=== PATIENT | female | born 1990 | race Caucasian/White ===

== ENCOUNTER → 2020-06-23 10:25 | Outpatient (CLI) | payer SELFPAY ==
[2020-06-23 09:20] VITALS: BMI 19.8
[2020-06-23 10:48] LABS: Absolute Lymphocyte Count 1.62 X10^3/uL (0.83-4.51); Absolute Neutrophil Count 10.5 X10^3/uL (2.0-7.7); Basophil# 0.04 X10^3/uL; Basophil% 0.3 % (0-1); Eosinophil# 0.12 X10^3/uL; Eosinophils% 0.9 % (0-5); Hemoglobin 13.5 g/dL (12.0-15.0); Lymphocyte # 1.62 X10^3/ul (0.83-4.51); Lymphocyte % 12.5 % (19-41); Mean Corp Hgb Conc 33.8 g/dL (32-36); Mean Corpuscular Hgb 29.9 pg (27.0-32.0); Mean Corpuscular Volume 88.7 fL (81-99); Mean Platelet Vol. 9.1 fl (6.2-12.0); Monocyte# 0.65 X10^3/uL; NRBC Flagged by Analyzer 0 % (0-5); Neutrophil % 80.9 % (47-70); Platelet Count 248 K/mm3 (150-450); RBC Distribution Width CV 12.4 % (11.6-14.6); RBC Distribution Width SD 40.2 fl (35.1-43.9); Red Blood Count 4.51 M/mm3 (4.2-5.4)
[2020-06-23 11:41] LABS: HIV - WCH Non-Reactive (Nonreactive); Hepatitis B Surface Antigen Non-Reactive (Nonreactive); Hepatitis C Antibody Non-Reactive (Nonreactive); Rubella IgG Reactive (Nonreactive); Syphilis Antibodies Non-reactive
[2020-06-23 14:26] LABS: Amphetamine Urine VISTA NEGATIVE (<1000 ng/mL); Barbiturate Urine VISTA NEGATIVE (< 200 ng/mL); Benzodiazepine Urine VISTA NEGATIVE (< 200 ng/mL); Cocaine Urine VISTA NEGATIVE (< 300 ng/mL); Ecstacy Urine VISTA NEGATIVE (< 500 ng/mL); Methadone Urine VISTA NEGATIVE (< 300 ng/mL); PCP Urine VISTA NEGATIVE (< 25 ng/mL); THC Urine VISTA NEGATIVE (< 50 ng/mL); Vista UDS pH Range 6
[2020-06-25 03:07] LABS: Chlamydia By Nucleic Acid AMP Negative (Negative)
[2020-06-25 08:42] LABS: Gonococcus By Nucleic Acid AMP Negative (Negative)
[2020-06-25 20:19] LABS: HPV APTIMA, High Risk Negative (Negative)
== END ==
PROVIDERS: Referring Provider Obstetrics & Gynecology; Visit Provider Obstetrics & Gynecology
DX: Z34.00 Encounter for supervision of normal first pregnancy, unspecified trimester (principal); Z12.4 Encounter for screening for malignant neoplasm of cervix
CPT/HCPCS: 36415; 80307; 85025; 86703; 86762; 86780; 86803; 86850; 86900; 86901; 87086; 87340; 87491; 87591; 87624; 88175; G0145

== ENCOUNTER → 2020-09-02 13:51 | Outpatient (CLI) | payer SELFPAY ==
[2020-07-22 10:55] VITALS: BMI 19.8
[2020-08-18 14:02] VITALS: BMI 21.4
--- NOTE | 2020-09-02 13:57 | US_ITS ---
STUDY: SECOND AND THIRD TRIMESTER OBSTETRICAL ULTRASOUND REASON FOR EXAM: Female, 30 years old ANATOMY LMP: 04/13/2020. TECHNIQUE: Transabdominal and Transvaginal TECHNICAL QUALITY: Limited. Limited due to the positioning. PRIOR ULTRASOUND: None. FINDINGS: There is a single intrauterine fetus. The fetus is in a cephalic presentation. There is demonstrated cardiac activity with a heart rate of 150 bpm. There is a normal amniotic fluid volume. The largest amniotic fluid pocket measures 7.2 cm. The amniotic fluid index (NICOLE) is within normal limits. The placenta is posterior in location and is not low lying. There are Grade 0 placental changes. The cervix measures 3.2 cm in length. The adnexal regions are not visualized. BIOMETRY: BPD: 4.5 cm: 19 weeks, 4 days HC: 17.83 cm: 20 weeks, 2 days AC: 15.3 cm: 20 weeks, 3 days FL: 3.12 cm: 9 weeks, 4 days CI: 70.7% FL/BPD: 69.3% FL/HC: FL/AC: 20.4% HC/AC: 1.17 age by current US: 20 weeks, 0 days. KHALIDA by current US: 01/20/2021. Estimated weight: 331 grams, +/- 50 grams, 33.7 %. Age by LMP: 20 weeks, 2 days. KHALIDA by LMP: 01/18/2021. ANATOMY: Gender: Female Cranium: Normal lateral ventricles. Normal choroid plexus. Normal cerebellum. Normal cisterna magna. Normal face, nose and lips. Chest: Normal 4-chamber heart. Abdomen/Pelvis: Normal diaphragm. Normal stomach. Normal abdominal wall. Normal cord insertion. Normal 3 vessel cord. Normal kidneys. Normal bladder. Spine: Limited visualization of the cervical spine. Follow-up is recommended. Normal thoracic spine. Normal lumbar spine. Normal sacrum. Extremities: Normal bilateral upper extremities. Normal bilateral lower extremities. US/OB Anatomy Scan IMPRESSION: Single live intrauterine gestation with mean gestational age of 20 weeks. Electronically Signed: Christian Madrigal MD at 12:57 EDT , Service support ,
== END ==
PROVIDERS: Referring Provider Nurse Practitioner Women's Health; Visit Provider Nurse Practitioner Women's Health
DX: Z34.01 Encounter for supervision of normal first pregnancy, first trimester (principal)
CPT/HCPCS: 76805; 76817

== ENCOUNTER → 2020-10-19 13:02 | Outpatient (CLI) | payer SELFPAY ==
[2020-10-19 13:29] LABS: Absolute Neutrophil Count 13.2 X10^3/uL (2.0-7.7); Basophil# 0.03 X10^3/uL; Basophil% 0.2 % (0-1); Eosinophil# 0.13 X10^3/uL; Eosinophils% 0.8 % (0-5); Hematocrit 34.7 % (37-47); Hemoglobin 11.8 g/dL (12.0-15.0); Lymphocyte % 8.4 % (19-41); Mean Corpuscular Hgb 31.1 pg (27.0-32.0); Mean Corpuscular Volume 91.3 fL (81-99); Mean Platelet Vol. 8.8 fl (6.2-12.0); Monocyte# 0.69 X10^3/uL; Monocyte% 4.4 % (0-10); NRBC Flagged by Analyzer 0 % (0-5); Neutrophil # 13.16 X10^3/uL (2.7-7.7); Neutrophil % 84.8 % (47-70); Platelet Count 250 K/mm3 (150-450); RBC Distribution Width CV 12.2 % (11.6-14.6); RBC Distribution Width SD 40.4 fl (35.1-43.9); White Blood Count 15.5 K/mm3 (4.4-11.0)
[2020-10-19 14:11] LABS: Glucose Challenge Gest 1H 50g 108 mg/dL (70-140)
== END ==
PROVIDERS: Referring Provider Obstetrics & Gynecology; Visit Provider Obstetrics & Gynecology
DX: Z13.1 Encounter for screening for diabetes mellitus (principal); Z34.01 Encounter for supervision of normal first pregnancy, first trimester
CPT/HCPCS: 36415; 82950; 85025; 86850; 86900; 86901

== ENCOUNTER → 2020-12-22 | Outpatient (CLI) | payer SELFPAY | END | disposition home or self-care (01) | PROVIDERS: Visit Provider Obstetrics & Gynecology | DX: Z34.01 Encounter for supervision of normal first pregnancy, first trimester (principal) | CPT/HCPCS: 87081 ==

== ENCOUNTER → 2021-01-20 | Outpatient (CLI) | payer SELFPAY | END | disposition home or self-care (01) | LOC: LABSPEC 16:41 | PROVIDERS: Visit Provider Obstetrics & Gynecology | DX: Z34.93 Encounter for supervision of normal pregnancy, unspecified, third trimester (principal) | CPT/HCPCS: 87635; U0005; U0003 ==

== ENCOUNTER 2021-01-22 07:10 | Inpatient (IN) | payer OTHER, SELFPAY ==
[2020-06-23 09:20] VITALS: BMI 19.8
[2021-01-22] VITALS (70 sets, daily range): BP systolic 100–136; BP diastolic 55–87; PULSE 76–117; RESP 18; TEMP 36.2–37.4; O2SAT 93–100; BMI 28.6
[2021-01-22] MEDS: Lactated Ringers 1,000 ML 200 ML IV (07:40)
[2021-01-22 08:08] LABS: Absolute Lymphocyte Count 1.81 X10^3/uL (0.83-4.51); Absolute Neutrophil Count 16.2 X10^3/uL (2.0-7.7); Basophil# 0.06 X10^3/uL; Basophil% 0.3 % (0-1); Eosinophil# 0.09 X10^3/uL; Eosinophils% 0.5 % (0-5); Hemoglobin 11.2 g/dL (12.0-15.0); Lymphocyte # 1.81 X10^3/ul (0.83-4.51); Lymphocyte % 9.4 % (19-41); Mean Corpuscular Hgb 26.4 pg (27.0-32.0); Mean Corpuscular Volume 82.4 fL (81-99); Mean Platelet Vol. 9.4 fl (6.2-12.0); Monocyte# 0.85 X10^3/uL; Monocyte% 4.4 % (0-10); NRBC Flagged by Analyzer 0 % (0-5); Neutrophil # 16.17 X10^3/uL (2.7-7.7); Neutrophil % 84.5 % (47-70); Platelet Count 287 K/mm3 (150-450); RBC Distribution Width CV 13.9 % (11.6-14.6); RBC Distribution Width SD 41.2 fl (35.1-43.9); Red Blood Count 4.25 M/mm3 (4.2-5.4); White Blood Count 19.2 K/mm3 (4.4-11.0)
[2021-01-22] MEDS: Lactated Ringers 500 ML 999 ML IV ×2 (08:38→09:59)
--- NOTE | 2021-01-22 08:44 | HP.PCM.OB_ITS ---
HPI - General General Date of Admission: 01/22/21 HPI Narrative MADISON HERNANDEZ, is a 30 F @ 40 weeks 4 days who presents to l&D at 6 cm dilated. She states that she has been leaking some yellow fluid x 2 days but does not believe that her membranes are ruptured. She was scheduled for an IOL for Sunday. Maternal Data Information KHALIDA Calculator Estimated Delivery Date Method Current WG Current Estimate 01/18/21 LMP (Certain) 40w 4d PFSH PFSH Allergy/AdvReac Type Severity Reaction Status Date / Time No Known Allergies Allergy Verified 01/22/21 07:29 Surgical History History of wisdom tooth extraction, class IV edentulism Social History adopted: No household members: spouse housing: house current occupational status: employed pets and animals: No sexually active: Yes Smoking Status: Never smoker second hand exposure: No alcohol intake: current alcohol intake frequency: holidays/special occasions only substance use type: does not use caffeine: Yes seatbelt use: always do you feel safe at home: Yes additional social history: - Sincere History 1 Elective abortions Hx Para Spontaneous abortions Hx # Term Pregnancies Ectopic pregnancies Hx # Pregnancies Multiple births # of living children Visit Details Expected Delivery Route/Plan Labor Preferences- CB/BF classes: No labor support person: Sincere labor intervention preferences: [] pain management options preferred: epidural cut cord/dad catch: no : yes PP control planned: discussed; condoms discussed possible routes of delivery and associated risks: [] special requests: [] Plans covid status: counseled regarding risk of covid in vs vaccination and declined vaccination flu vaccine: declines tdap vaccine: declines rhogam: declines LARC form signed: yes movement and labor precautions reviewed. Problem list reviewed and updated with the most current plan of care details and appropriate orders placed. Relevant counseling for the gestational age provided. Continue routine care and follow up unless otherwise noted in visit notes/problem list details OB Flowsheet Initial Weight: Not Recorded Date -?-?-?--?-?-?-?-?-?-?-?-?- EGA Weight BP Urine Prot -?-?-?-?-?-?-?-?-?-?-?-?- Glucose FHR FuHt Pres Dilation -?-?-?-?-?-?-?-?-?-?-?-?- Effaced St Visit Note 06/23/20 -?-?-?-?-?-?-?-?-?-?-?-?- 10w 1d 117 lb 4 oz 110/82 -?-?-?-?-?-?-?-?-?-?-?-?- 168 -?-?-?-?-?-?-?-?-?-?-?-?- GP - CRL 28mm co nsistent with LMP. 07/22/20 -?-?-?-?-?-?-?-?-?-?-?-?- 14w 2d 121 lb 8 oz 104/60 Nega tive -?-?-?-?-?-?-?-?-?-?-?-?- Negative 160 -?-?-?-?-?-?-?-?-?-?-?-?- MH-NO VB, LOF. Anatomy US ordered. Nausea improving. Reviewed PNL and need for rhogam. 08/18/20 -?-?-?-?-?-?-?-?-?-?-?-?- 18w 1d 127 lb 110/70 Negative -?-?-?-?-?-?-?-?-?-?-?-?- Negative 145 -?-?-?-?-?-?-?-?-?-?-?-?- GP - no cramping or bleeding. +FM. having surgery 08/30 so needs to reschedule anatomy. 09/17/20 -?-?-?-?-?-?-?-?-?-?-?-?- 22w 3d 137 lb 2 oz 118/70 -?-?-?-?-?-?-?-?-?-?-?-?- 120 22 -?-?-?-?-?-?-?-?-?-?-?-?- GP - no LOF, VB, dFM, ctx. GCT next visit. Anatomy scan reviewed. Having a girl! 10/19/20 -?-?-?-?-?-?-?-?-?-?-?-?- 27w 0d 147 lb 120/82 Trace -?-?-?-?-?-?-?-?-?-?-?-?- Negative 145 27 -?-?-?-?-?-?-?-?-?-?-?-?- MH-No Vb, LOF. Good FM. 28 wk labs and larc done. Declines Tdap and rhogam:states sent proof of 's negative blood type to GP 11/10/20 -?-?-?-?-?-?-?-?-?-?-?-?- 30w 1d 152 lb 8 oz 118/78 Nega tive -?-?-?-?-?-?-?-?-?-?-?-?- Negative 155 30 -?-?-?-?-?-?-?-?-?-?-?-?- GP - no LOF, VB, DFM, ctx. Denies complaints. Discussed medication for occasional heartburn - declines at this time 11/24/20 -?-?-?-?-?-?-?-?-?-?-?-?- 32w 1d 153 lb 8 oz 120/80 Nega tive -?-?-?-?-?-?-?-?-?-?-?-?- Negative 140 32 -?-?-?-?-?-?-?-?-?-?-?-?- GP - no LOF, VB, DFM, ctx. Discussed management of heartburn 12/08/20 -?-?-?-?-?-?-?-?-?-?-?-?- 34w 1d 159 lb 4 oz 118/68 Nega tive -?-?-?-?-?-?-?-?-?-?-?-?- Negative 156 34 -?-?-?-?-?-?-?-?-?-?-?-?- MH-No Vb, LOF. G ood FM. Denies concerns 12/22/20 -?-?-?-?-?-?-?-?-?-?-?-?- 36w 1d 163 lb 4 oz 120/80 1+ -?-?-?-?-?-?-?-?-?-?-?-?- 250 g/dL 165 36 -?-?-?-?-?-?-?-?-?-?-?-?- JV- no lof, vagi nal bleeding, or dec fm. gbs collected today. pt wants us to know that her is also RH neg. 12/29/20 -?-?-?-?-?-?-?-?-?-?-?-?- 37w 1d 165 lb 120/64 Negative -?-?-?-?-?-?-?-?-?-?-?-?- Negative 145 37 -?-?-?-?-?-?-?-?-?-?-?-?- JV- no lof, vagi nal bleeding. some slowing of movement. active now .GBS neg 01/06/21 -?-?-?-?-?-?-?-?-?-?-?-?- 38w 2d 165 lb 2 oz 110/80 Nega tive -?-?-?-?-?-?-?-?-?-?-?-?- Negative 137 36 Cephalic -?-?-?-?-?-?-?-?-?-?-?-?- JV- patient decl juan exam today. no lof, vaginal bleeding, or dec fm. She is not getting a lot of sleep. declines vistaril. 01/14/21 -?-?-?-?-?-?-?-?-?-?-?-?- 39w 3d 168 lb 132/80 Negative -?-?-?-?-?-?-?-?-?-?-?-?- Negative 135 37 Cephalic 2 -?-?-?-?-?-?-?-?-?-?-?-?- 70 -1 SM- no vb lof good fm no regular ctx 01/20/21 -?-?-?-?-?-?-?-?-?-?-?-?- 40w 2d 167 lb 104/72 -?-?-?-?-?-?-?-?-?-?-?-?- 130 39 Cephalic 2 -?-?-?-?-?-?-?-?-?-?-?-?- 70 -1 SM- no vb lof good fm no reulgar ctx 01/22/21 -?-?-?-?-?-?-?-?-?-?-?-?- 40w 4d 131/87 116/84 -?-?-?-?-?-?-?-?-?-?-?-?- -?-?-?--?-?-?-?-?-?-?-?-?- ROS Constitutional Constitutional: Denies change in weight, fatigue, fever(s), headache(s), poor appetite or weakness Eyes Eyes: Denies blurry vision, change in vision, seeing flashes or spots in vision ENT HEENT: Denies dizziness, headache(s), loss taste/smell or sore throat Cardiovascular Cardiovascular: Denies chest pain, dizziness, dyspnea, irregular heart rhythm, leg edema, palpitations, rapid heart rate or vomiting Respiratory/Chest Respiratory/Chest: Denies chest tightness, cough, dyspnea or breast pain Gastrointestinal Gastrointestinal: Denies abdominal pain, anorexia, constipation, cramping, diarrhea, hemorrhoids, vomiting or weight changes Genitourinary Genitourinary: Denies dysuria, flank pain, genital lesions, genital pain, urinary frequency or urinary urgency Musculoskeletal Musculoskeletal: Denies back pain, difficulty walking, joint pain, limited range of motion, muscle cramps or numbness Integumentary Integumentary: Denies lesions or unusual bruising Neurologic Neurologic: Denies abnormal movements, abnormal speech, dizziness, numbness, seizure-like activity or syncope Psychiatric Psychiatric: Denies anxiety, behavioral changes, change in appetite, change in libido, cognitive impairment, confusion, depression, difficulty concentrating, hallucinations or suicidal thoughts Endocrine Endocrinology: Denies excessive sweating, polydipsia or polyuria Hematologic/Lymphatic Hematologic/Lymphatic: Denies easy bleeding, easy bruising or lymphadenopathy Allergic/Immunologic Allergic/Immunologic: Denies itchy eyes, lip swelling, seasonal rhinorrhea, rhinitis, throat swelling, tongue swelling, eczemia, wheezing or asthma Vital Signs Vital Signs Vital Signs: 01/22/21 07:23 01/22/21 07:50 01/22/21 08:02 Temperature 97.7 F L Temperature Source Temporal Pulse Rate 116 H 93 101 H Blood Pressure 131/87 H 116/84 H BP Systolic 131 116 BP Diastolic 87 84 Pulse Ox 100 Physical Exam Const alert, oriented x3, no apparent distress and healthy appearing General Appearance: cooperative; Negative for anxious HEENT normocephalic Face and Sinus: normal facial exam Eyes EOMs intact bilaterally and no scleral icterus General Eye: normal appearance of both eyes Neck full ROM and supple Lymph Lymphatic: no lymphadenopathy noted Chest Chest: abnormal inspection of the chest Resp normal respiratory effort Effort and Inspection: able to speak in complete sentences Cardio regular rate GI soft to palpation and non-tender Inspection: gravid Palpation: soft; Negative for tender external exam normal Amniotic Fluid: ROM+plus Back/Spine no CVA tenderness Extremity normal to inspection, full ROM and no clubbing, cyanosis or edema General Extremity: Negative for calf tenderness or edema Skin Lesions: no lesions Rashes: no rashes Psych mental status grossly normal Labs Labs Labs: Blood Type A NEGATIVE Antibody Screen NEGATIVE Hct 35.0 % (37-47) L Hgb 11.2 g/dL (12.0-15.0) L Obstetrics US Syphilis Total Ab Non-reactive Rubella IgG Antibody Reactive (Nonreactive) Hep Bs Antigen Non-Reactive (Nonreactive) Neisseria gonorrhoeae DNA (AMRITA) Negative (Negative) HIV 1&2 Antibody Non-Reactive (Nonreactive) Glucose 1 Hr 50 gm 108 mg/dL (70-140) Assessment & Plan (1) Encounter for induction of labor: COMMENT: pit fb IOL epi PRN. covid done 01/20- (2) Rh negative status during : QUALIFIERS: Trimester: second trimester Qualified Code(s): O26.892 - Other specified related conditions, second trimester; Z67.91 - Unspecified blood type, Rh negative COMMENT: Rhogam 28 wk, pp and prn - is O negative (documentation sent of blood type). Pt declines rhogam (3) Supervision of normal first : QUALIFIERS: Trimester: first trimester Qualified Code(s): Z34.01 - Encounter for supervision of normal first , first trimester COMMENT: PRR KHALIDA: 01/18/21 Girl! Spouse: Sincere (4) : QUALIFIERS: Weeks of gestation: 40 weeks Qualified Code(s): Z3A.40 - 40 weeks gestation of COMMENT: declined ntd, genetic and carrier; anatomy nl. GBS neg PLAN: Patient presents IAL, plan expectant management for , pitocin/AROM PRN if needed. Pain management: plans epidural. GBS negative Management of any complications: none I have reviewed the [facility] and made any clinically relevant updates.
--- NOTE | 2021-01-22 09:07 | NURSING ---
0907-uncertain if pt ruptured for sure, pt had been wearing a pad for the last few days, but had stated her fluid was yellow in appearance to the pad when she noticed it.
[2021-01-22] MEDS: fentaNYL-bupivacaine (epidural) 100 ML BAG EPIDURAL (09:36)
[2021-01-22] MEDS: Oxytocin 30 units/NS 500 ml 30 UNITS/500 ML IV.SOLN IV (11:41)
[2021-01-22] MEDS: Mag Hydrox/Al Hydrox/Simeth 30 ML UDC PO (13:56)
[2021-01-22] MEDS: Oxytocin 30 units/NS 500 ml 30 UNITS/500 ML IV.SOLN 334 UNITS IV (14:25)
--- NOTE | 2021-01-22 14:43 | EX.PCM.OBRPT ---
Maternal Data Information KHALIDA Calculator Estimated Delivery Date Method Current WG Current Estimate 01/18/21 LMP (Certain) 40w 4d Vaginal Delivery Maternal Presentation Maternal Presentation: Active Labor Operative Information Date of Procedure: 01/22/21 Pre-Operative Diagnosis: 40 weeks 4 days active labor Post-Operative Diagnosis: 40 weeks 4 days active labor Surgery / Procedure Performed: Spontaneous Vaginal Delivery Type of Anesthesia: Epidural Estimated Blood Loss: 300cc Time of Delivery: 14:36 Findings Description of Procedure: Patient began pushing and delivered the head in the DNAISH presentation. The head was delivered atraumatically . The anterior and posterior shoulders delivered without complication followed by the rest of the infant and the was placed on the maternal abdomen. Delayed cord clamping was employed for approximately 60 seconds. Cord was clamped and cut and gentle traction was applied to the cord and the placenta delivered spontaneously immediately following it was noted to be intact with three-vessel cord. The perineum and vagina were inspected and found to have a 2nd degree perineal laceration that was repaired using a 2-0 vicryl suture. EBL was 300cc. Patient and infant tolerated delivery well. Presentation: Vertex Amniotic Membrane Rupture Type: Artificial Amniotic Fluid Description: Clear Placental Delivery Description: Spontaneous Placenta Disposition: [facility] Cord Vessel Description: 3 Vessels Cord Entanglement: None (1 minute): 8 (5 minute): 9 Delayed Cord Clamping: Yes Post Vaginal Delivery Medications Given After Delivery: IV Pitocin Episiotomy Description: None Laceration: 2nd degree Complication Complications: None Baby B Operative Information Mode of Delivery: Vaginal Cord Vessel Description: 3 Vessels Cord Entanglement: None B gender: Female (1 minute): 8 (5 minute): 9 Delayed Cord Clamping: Yes Multi Select Codes Urinary/Genital Urinary/Genital CPT Codes: 07098 Vaginal Delivery [facility]
[2021-01-22] MEDS: 0.9% Saline Lock 10 ML Syringe IV (17:08)
[2021-01-22] MEDS: Senna/Docusate Sodium 1 Tablet PO (17:08)
[2021-01-22] MEDS: Acetaminophen 500 MG Tablet 1000 MG PO (21:22)
[2021-01-23] VITALS (10 sets, daily range): BP systolic 106–118; BP diastolic 58–72; PULSE 82–112; RESP 16–18; TEMP 36.3–36.7; O2SAT 93–98
[2021-01-23] MEDS: Ibuprofen 600 MG Tablet PO ×2 (00:53→12:03)
[2021-01-23] MEDS: Benzocaine/Lanolin/Aloe Vera 1 SPRAY EACH TOPICAL (00:55)
--- NOTE | 2021-01-23 11:15 | PCM.DC ---
Discharge Instructions Diet Discharge Diet: No restrictions Activity Discharge Activity: Return to Normal Activity, May Not Drive (while taking narcotic pain medications.) and May Shower May resume sexual activity in: 4-6 weeks Dressing / Incision Call your doctor if your incision/area has: Continuous Slow Oozing, Sudden Increased Bleeding, Increased Pain/ Swelling, Increased Redness and Foul Smelling Discharge Follow Up Care Please Follow Up With: Mahsa Lebron DO When: Call [phone] to make an appointment with your doctor in 6 weeks. If you had elevated blood pressure or 4th degree laceration, you will need to be seen in 2 weeks. Test Results: Test results from this visit will be discussed in further detail at your follow-up appointment, if applicable. Discharge Plan Admission Admit Date/Time: 01/22/21 07:10 Primary Reason for Your Visit: vaginal delivery Attending Provider: Mahsa Lebron Primary Care Provider: Care Physician,No Primary Discharge Orders/Prescriptions Prescriptions: New ibuprofen 800 mg tablet 800 mg PO Q8H PRN (Reason: pain) 7 Days Qty: 30 RF: 0 docusate sodium [Colace] 100 mg capsule 100 mg PO DAILY 15 Days Qty: 15 RF: 0 Referrals / Follow Up: Care Physician,No Primary [Primary Care Provider] - Disposition Disposition (needs filled in before D/C Order can be placed): Home, Self Care
--- NOTE | 2021-01-23 11:17 | PCM.PN.OB ---
Subjective Subjective Patient doing well without complaints. Tolerating PO. Ambulating and voiding without difficulty. Feeding well. Denies chest pain, shortness of breath, calf pain/swelling, fevers, chills, lightheadedness. Objective Data Objective Data Vital Signs: Vital Signs Temp Pulse Resp BP Pulse Ox 97.4 F L 112 H 16 118/69 97 01/23/21 08:44 01/23/21 08:46 01/23/21 08:44 01/23/21 08:46 01/23/21 08:46 Oxygen Delivery Method Room Air Weight: 167 lb 1.766 oz Body Mass Index (BMI) 28.6 Intake & Output: Intake and Output for Last 24 Hours 01/21/21 01/22/21 01/23/21 23:59 23:59 23:59 Intake Total 3226.84 / 3226.84 Output Total 1450 / 1450 Balance 1776.84 / 1776.84 Lab / Micro Data Result Diagrams: 01/22/21 07:40 ROS Constitutional Constitutional: Denies chills, fatigue, fever(s), poor appetite or weakness Eyes Eyes: Denies blurry vision, change in vision, seeing flashes or spots in vision ENT HEENT: Denies dizziness, headache(s), loss taste/smell or sore throat Cardiovascular Cardiovascular: Denies chest pain, dizziness, dyspnea, irregular heart rhythm, palpitations or rapid heart rate Respiratory/Chest Respiratory/Chest: Denies chest tightness, cough, dyspnea or breast pain Gastrointestinal Gastrointestinal: Denies abdominal pain, constipation or vomiting Genitourinary Genitourinary: Denies dysuria or flank pain Musculoskeletal Musculoskeletal: Denies difficulty walking, joint pain, limited range of motion or numbness Neurologic Neurologic: Denies abnormal movements, abnormal speech, dizziness, numbness, seizure-like activity or syncope Psychiatric Psychiatric: Denies anxiety, behavioral changes, change in appetite, confusion, depression or suicidal thoughts Physical Exam Const alert, oriented x3 and no apparent distress General Appearance: cooperative and comfortable Resp normal respiratory effort Cardio regular rate GI normal to inspection, nondistended, normoactive bowel sounds GI Narrative: uterus is firm below umbilicus Palpation: soft Bimanual Exam - Adnexa, Other: Negative for cul-de-sac fullness Back/Spine no CVA tenderness and thoraco-lumbar ROM normal Extremity normal to inspection, no clubbing, cyanosis or edema, no calf tenderness and no pedal edema Psych mental status grossly normal, thought process normal, cooperative, affect normal, speech normal, activity/motor behavior normal, denies homicidal ideation and denies suicidal ideation Assessment & Plan (1) Encounter for induction of labor: COMMENT: pit fb IOL epi PRN. covid done 01/20- (2) Rh negative status during : QUALIFIERS: Trimester: second trimester Qualified Code(s): O26.892 - Other specified related conditions, second trimester; Z67.91 - Unspecified blood type, Rh negative COMMENT: Rhogam 28 wk, pp and prn - is O negative (documentation sent of blood type). Pt declines rhogam (3) Supervision of normal first : QUALIFIERS: Trimester: first trimester Qualified Code(s): Z34.01 - Encounter for supervision of normal first , first trimester COMMENT: PRR KHALIDA: 01/18/21 Girl! Spouse: Sincere (4) : QUALIFIERS: Weeks of gestation: 40 weeks Qualified Code(s): Z3A.40 - 40 weeks gestation of COMMENT: declined ntd, genetic and carrier; anatomy nl. GBS neg PLAN: s/p PPD # 1 1. routine post delivery care 2. breast feeding- support given 3. rh positive 4. rubella immune 5. dc to home later today if baby cleared by peds and patient feels comfortable with pain later this afternoon.
[2021-01-23] MEDS: Acetaminophen 500 MG Tablet 1000 MG PO (16:16)
== END 2021-01-23 18:15 | disposition home or self-care (01) | DRG 807 ==
PROVIDERS: Admitting Provider Obstetrics & Gynecology; Visit Provider Obstetrics & Gynecology
DX: O70.1 Second degree perineal laceration during delivery (principal); Z37.0 Single live birth; Z3A.40 40 weeks gestation of pregnancy
CPT/HCPCS: 59025; 59050; 85025; 86850; 86900; 86901; 99218; J7120; A4216; G0378

== ENCOUNTER 2021-03-11 10:58 | Outpatient (CLI) | payer OTHER, SELFPAY ==
--- NOTE | 2021-03-11 10:59 | US_ITS ---
STUDY: ULTRASOUND BREAST - LEFT REASON FOR EXAM: Female, 30 years old. Palpable lump left breast. TECHNIQUE: Axial and longitudinal images of the LEFT breast were performed with a high resolution ultrasound transducer. # OF IMAGES: 31 COMPARISON: None. FINDINGS: LEFT Breast: The palpable abnormality corresponds to a 1.7 cm x 2.1 cm x 1.8 cm heterogeneous soft tissue density at the 1 o''clock position of the breast at 2 cm from the nipple. The patient is presently nursing. This may represent a focal area of mastitis. Clinical correlation is recommended. US/Breast Limited Unilateral IMPRESSION: The palpable abnormality corresponds to a 1.7 cm x 2.1 cm x 1.8 some heterogeneous soft tissue density. The patient is nursing. This may represent a focal area of mastitis. ASSESSMENT CATEGORY: BIRADS Category 2: Benign. A letter regarding these results will be sent to the patient by the facility within 30 days. Electronically Signed: Christian Madrigal MD at 13:14 EST , Service support ,
== END 2021-03-11 23:59 | disposition short-term general hospital (02) ==
PROVIDERS: Referring Provider Obstetrics & Gynecology; Visit Provider Obstetrics & Gynecology
DX: N63.20 Unspecified lump in the left breast, unspecified quadrant (principal)
CPT/HCPCS: 76642

== ENCOUNTER → 2023-10-23 | Outpatient (CLI) | payer OTHER, SELFPAY ==
[2023-10-26 07:09] LABS: Chlamydia By Nucleic Acid AMP Negative (Negative); Gonococcus By Nucleic Acid AMP Negative (Negative)
== END | disposition home or self-care (01) ==
LOC: LABSPEC 14:15
PROVIDERS: Referring Provider Obstetrics & Gynecology; Visit Provider Obstetrics & Gynecology
DX: O09.90 Supervision of high risk pregnancy, unspecified, unspecified trimester (principal); Z3A.00 Weeks of gestation of pregnancy not specified
CPT/HCPCS: 87086; 87491; 87591

== ENCOUNTER → 2023-11-20 | Outpatient (CLI) | payer OTHER, SELFPAY ==
--- NOTE | 2023-11-20 12:18 | US_ITS ---
STUDY: ULTRASOUND BREAST - LEFT REASON FOR EXAM: Female, 33 years old. Palpable lump left breast. Patient is . TECHNIQUE: Axial and longitudinal images of the LEFT breast were performed with a high resolution ultrasound transducer. # OF IMAGES: 18 COMPARISON: Comparison is made with prior study dated September 08, 2021. FINDINGS: LEFT Breast: There is a 2.1 cm x 2.3 cm x 1.1 cm well-defined hypoechoic nodule at the 3:00 position of the left breast. This is essentially unchanged. This may represent a fibroadenoma. There is also evidence of a 1.8 cm x 1.8 cm x 0.9 cm well-defined nodule at the 2:00 position of the breast. These may represent fibroadenoma. There is also evidence of a 1 cm x 1.3 cm x 1 cm hypoechoic nodule with posterior acoustical shadowing in the retroareolar region of the breast. Biopsy recommended. US/Breast Limited Unilateral IMPRESSION: Well-defined hypoechoic nodules in the lateral midportion of the left breast as described. Findings suggestive of fibroadenoma. 1 cm x 1.3 cm x 1 cm hypoechoic nodule in the retroareolar region of the left breast with posterior shadowing. Biopsy recommended. ASSESSMENT CATEGORY: BIRADS Category 4: Suspicious - Biopsy Should Be Considered. A letter regarding these results will be sent to the patient by the facility within 30 days. Electronically Signed: Christian Madrigal MD at 14:43 EDT ,
[2023-11-20 14:07] LABS: Absolute Lymphocyte Count 1.41 X10^3/uL (0.83-4.51); Absolute Neutrophil Count 9.6 X10^3/uL (2.0-7.7); Basophil# 0.03 X10^3/uL; Basophil% 0.3 % (0-1); Eosinophils% 1.7 % (0-5); Hematocrit 38.7 % (37-47); Hemoglobin 13.2 g/dL (12.0-15.0); Lymphocyte # 1.41 X10^3/ul (0.83-4.51); Lymphocyte % 12.1 % (19-41); Mean Corp Hgb Conc 34.1 g/dL (32-36); Mean Corpuscular Hgb 30.1 pg (27.0-32.0); Mean Corpuscular Volume 88.2 fL (81-99); Monocyte# 0.45 X10^3/uL; Monocyte% 3.8 % (0-10); NRBC Flagged by Analyzer 0 % (0-5); Neutrophil # 9.56 X10^3/uL (2.7-7.7); Neutrophil % 81.7 % (47-70); Platelet Count 253 K/mm3 (150-450); RBC Distribution Width CV 12.8 % (11.6-14.6); RBC Distribution Width SD 41.5 fl (35.1-43.9); Red Blood Count 4.39 M/mm3 (4.2-5.4); White Blood Count 11.7 K/mm3 (4.4-11.0)
[2023-11-20 15:09] LABS: HIV - WCH Non-Reactive (Nonreactive); Hepatitis B Surface Antigen Non-Reactive (Nonreactive); Hepatitis C Antibody Non-Reactive (Nonreactive); Rubella IgG Reactive (Nonreactive); Syphilis Antibodies Non-reactive
== END | disposition home or self-care (01) ==
PROVIDERS: Referring Provider Obstetrics & Gynecology; Visit Provider Obstetrics & Gynecology
DX: O09.90 Supervision of high risk pregnancy, unspecified, unspecified trimester (principal); Z3A.00 Weeks of gestation of pregnancy not specified; N63.21 Unspecified lump in the left breast, upper outer quadrant
CPT/HCPCS: 36415; 76642; 85025; 86703; 86762; 86780; 86803; 86850; 86900; 86901; 87340

== ENCOUNTER → 2023-11-23 | Outpatient (CLI) | payer OTHER, SELFPAY ==
--- NOTE | 2023-11-23 | BRBX_PTH ---
PATIENT: MADISON HERNANDEZ LOC: [facility] U#:[id number] AGE/SX: 33/F ROOM: RE11/23/[address]: Dr. Lucas Dorsey MD : 1990 BED: DIS: 11/23/2023 SPEC #: [id number] RECD: 11/23/23 15:25 STATUS: MARLENA DEONNA #: [id number] KIMI: 11/23/23 00:[address]: Lucas Dorsey DEPT: SURGICAL PATHOLOGY RECD BY: Vignesh Ventura ENTERED: 11/26/23 07:53 SP TYPE: BREAST BX OTHR DR: No Primary Care Phys Tissues: Left breast, NOS Procedures: Surgery Specimen Level IV HEADER OPERATION: Left breast biopsy PRE-OP DIAGNOSIS: Left breast mass TISSUE SUBMITTED: Left breast tissue Ischemic Time: 1 minute Fixation Time: 30 hours MICROSCOPIC DIAGNOSIS Left breast mass, core biopsy: Mild intraductal hyperplasia without atypia. Negative for malignancy. See comment. 11/27/2023 COMMENT Correlation with clinical, radiologic findings and appropriate follow up are necessary. MICROSCOPIC DESCRIPTION Slides are reviewed. GROSS DESCRIPTION Received in fixative is one container labeled with the patient's name and designated Left breast tissue. The specimen consists of multiple elongated fragments of urrutia-yellow fibroadipose tissue measuring in aggregate 2.0 x 0.2 x 0.1cm. The entire specimen is submitted in one cassette. 11/26/2023 TC:5 CPT:20807
== END | disposition home or self-care (01) ==
LOC: LABSPEC 16:14
PROVIDERS: Referring Provider Surgery; Visit Provider Surgery
DX: N63.20 Unspecified lump in the left breast, unspecified quadrant (principal)
CPT/HCPCS: 88305

== ENCOUNTER → 2023-12-19 | Outpatient (CLI) | payer OTHER, SELFPAY ==
--- NOTE | 2023-12-19 15:26 | US_ITS ---
STUDY: SECOND AND THIRD TRIMESTER OBSTETRICAL ULTRASOUND REASON FOR EXAM: Female, 33 years old anatomy LMP: August 01, 2023. TECHNIQUE: Transabdominal and Transvaginal TECHNICAL QUALITY: Adequate. PRIOR ULTRASOUND: None. FINDINGS: There is a single intrauterine fetus. The fetus is in a cephalic presentation. There is demonstrated cardiac activity with a heart rate of 154 bpm. There is a normal amniotic fluid volume. The largest amniotic fluid pocket measures 4 cm. The amniotic fluid index (NICOLE) is within normal limits. The placenta is anterior in location and is not low lying. There are Grade 0 placental changes. The cervix measures 3.9 cm in length. The adnexal regions are not visualized. BIOMETRY: BPD: 4.79 cm: 20 weeks, 3 days: 70% HC: 17.38 cm.: 19 weeks, 6 days: 38% AC: 14.38 cm: 19 weeks, 5 days: 35% FL: 2.9 cm: 18 weeks, 6 days: 9% CI: 79% FL/BPD: 60% FL/HC: 17% FL/AC: 20% HC/AC: 1.21 age by current US: 19 weeks, 5 days. KHALIDA by current US: May 09, 2024. Estimated weight: 295 grams, +/- 44 grams, 20 %. Age by LMP: 20 weeks, 0 days. KHALIDA by LMP: May 07, 2024. ANATOMY: Gender: Male Cranium: Normal lateral ventricles. Normal choroid plexus. Normal cerebellum. Normal cisterna magna. Normal face, nose and lips. Chest: Normal 4-chamber heart. Abdomen/Pelvis: Normal diaphragm. Normal stomach. Normal abdominal wall. Normal cord insertion. Normal 3 vessel cord. Normal kidneys. Normal bladder. Spine: Normal cervical spine. Normal thoracic spine. Normal lumbar spine. Normal sacrum. Extremities: Normal bilateral upper extremities. Normal bilateral lower extremities. IMPRESSION: Single live intrauterine gestation with mean gestational age of 19 weeks 5 days. Electronically Signed: Christian Madrigal MD at 14:34 EDT , STUDY: FIRST TRIMESTER OBSTETRICAL ULTRASOUND REASON FOR EXAM: Female, 33 years old . Cervical length. TECHNIQUE: Transvaginal TECHNICAL QUALITY: Adequate. PRIOR ULTRASOUND: None. FINDINGS: Cervical length measures 3.9 cm. US/OB Anatomy w/ Transvaginal IMPRESSION: Cervical length measures 3.9 cm. Electronically Signed: Christian Madrigal MD at 14:35 EDT ,
== END | disposition home or self-care (01) ==
PROVIDERS: Referring Provider Nurse Practitioner Women's Health; Visit Provider Nurse Practitioner Women's Health
DX: Z34.90 Encounter for supervision of normal pregnancy, unspecified, unspecified trimester (principal)
CPT/HCPCS: 76805; 76817

== ENCOUNTER → 2024-02-11 | Outpatient (CLI) | payer OTHER, SELFPAY ==
[2024-02-11 16:39] LABS: Glucose Challenge Gest 1H 50g 111 mg/dL (70-140)
[2024-02-11 16:49] LABS: Basophil# 0.05 X10^3/uL; Basophil% 0.4 % (0-1); Eosinophil# 0.18 X10^3/uL; Eosinophils% 1.4 % (0-5); Hematocrit 35.1 % (37-47); Hemoglobin 11.6 g/dL (12.0-15.0); Lymphocyte % 9.9 % (19-41); Mean Corpuscular Hgb 29.2 pg (27.0-32.0); Mean Corpuscular Volume 88.4 fL (81-99); Monocyte% 4.5 % (0-10); NRBC Flagged by Analyzer 0 % (0-5); Neutrophil # 10.97 X10^3/uL (2.7-7.7); Neutrophil % 83.1 % (47-70); Platelet Count 289 K/mm3 (150-450); RBC Distribution Width CV 12.3 % (11.6-14.6); RBC Distribution Width SD 39.7 fl (35.1-43.9); Red Blood Count 3.97 M/mm3 (4.2-5.4); White Blood Count 13.2 K/mm3 (4.4-11.0)
[2024-02-11 17:11] LABS: HIV - WCH Non-Reactive (Nonreactive); Syphilis Antibodies Non-reactive
== END | disposition home or self-care (01) ==
LOC: BWCLAB 15:16
PROVIDERS: Referring Provider Obstetrics & Gynecology; Visit Provider Obstetrics & Gynecology
DX: O09.92 Supervision of high risk pregnancy, unspecified, second trimester (principal); Z3A.00 Weeks of gestation of pregnancy not specified
CPT/HCPCS: 36415; 82950; 85025; 86703; 86780; 86850; 86900; 86901

== ENCOUNTER → 2024-04-09 | Outpatient (CLI) | payer OTHER, SELFPAY | END | disposition home or self-care (01) | LOC: LABSPEC 15:29 | PROVIDERS: Referring Provider Advanced Practice Midwife; Visit Provider Advanced Practice Midwife | DX: O09.93 Supervision of high risk pregnancy, unspecified, third trimester (principal); Z3A.00 Weeks of gestation of pregnancy not specified | CPT/HCPCS: 87081 ==

== ENCOUNTER 2024-04-29 10:55 | Outpatient (CLI) | payer OTHER, SELFPAY ==
[2024-04-29] VITALS (10 sets, daily range): BP systolic 115; BP diastolic 77; PULSE 90–101; RESP 14–15; TEMP 37.2; O2SAT 94–99
--- NOTE | 2024-04-29 11:02 | US_ITS ---
PROCEDURE: OB LIMITED WITH BIOMETRICS REASON FOR EXAM: DECREASED FM COMPARISON: None. FINDINGS Number: 1 Position: Vertex Placental Position: Anterior and not low-lying. Placental Abnormalities: None. DIMENSIONS: Biparietal Diameter: 9.4 cm: 38 weeks and 3 days: 69 percentile/ Head Circumference: 33.4 cm: 38 weeks and 1 day: 20 percentile/ Abdominal Circumference: 32.3 cm: 36 weeks and 1 day: 8 percentile/ Femur Length: 7.3 cm: 37 weeks and 4 days: 25 percentile/ ESTIMATED WEIGHT: 3118 g plus/-468 g ESTIMATED WEIGHT PERCENTILE (24+ weeks): 26 ESTIMATED GESTATIONAL AGE: Baseline: 38 weeks and 6 days. By Ultrasound: 37 weeks and 6 days ESTIMATED DATE OF DELIVERY: Baseline: May 07, 2024 By Ultrasound: May 14, 2024 BIOPHYSICAL ASSESSMENT: Amniotic Fluid Volume: Subjectively normal. Amniotic Fluid Index: 9.0 (8-24 cm normal range) Cardiac Motion: 150 beats per minute (average) Trunk and Limb Motion: Present. MATERNAL ANATOMY: Adnexa: Neither maternal ovary is successfully identified. US/OB Limited With Biometrics IMPRESSION: Single live intrauterine gestation with a mean gestational age of 37 weeks and 6 days. Reading Location: [facility]
--- NOTE | 2024-04-29 12:37 | OB.TRI.HP_ITS ---
HPI - General HPI Narrative MADISON HERNANDEZ, is a 33 F who presents to L&D @ 38 weeks 6 days with low fundal height and some decrease in movement. NICOLE is normal. The AC is 7th% on ultrasound. Maternal Data Information KHALIDA Calculator Estimated Delivery Date Method Current WG Current Estimate 05/07/24 LMP (Certain) 38w 6d Other Estimates 05/07/24 Ultrasound #1 38w 6d PFSH PFSH Medical History Breast lump Melanoma Home Medications ?Medication ?Instructions ?Recorded ?Last Taken ?Type multivitamin no.47-iron fum 27 cap PO 10/19/23 Unknown History mg-folate no.1 1 mg-dha 300 mg capsule (PNV-DHA) Allergy/AdvReac Type Severity Reaction Status Date / Time No Known Allergies Allergy Verified 04/29/24 10:39 Family History Mother Family history of recurrent miscarriage Surgical History History of amputation of toe History of wisdom tooth extraction, class IV edentulism Social History adopted: No household members: spouse and children housing: house number of children: 1 current occupational status: employed 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 pets and animals: No history of recent travel: No sexually active: Yes Smoking Status: Never smoker second hand exposure: No alcohol intake: current alcohol intake frequency: holidays/special occasions only details: not while substance use type: does not use well-balanced diet: daily or most days caffeine: Yes Type: carbonated beverages Number of servings: 1 eating out: rarely or never during the past year weight has: remained stable what type of physical activity do you participate in: none shazia/alevism: Pentecostalism seatbelt use: always do you feel safe at home: Yes additional social history: [place] History 2 Elective abortions Hx Para 1 Spontaneous abortions Hx # Term Pregnancies Ectopic pregnancies Hx # Pregnancies Multiple births # of living children 1 Past Pregnancies Del. Date Name GA/Weeks Outcome Route Bth Weight Infant Gen Labor Lgth Anesthesia Del Locatn Provider FOB 01/22/21May live - full term 8lbs 13oz Female e pidural [facility] Dr. Lebron Visit Details Expected Delivery Route/Plan Labor Preferences- CB/BF classes: no labor support person: Sincere labor intervention preferences: [] pain management options preferred: epidural cut cord/dad catch: no : yes PP control planned: discussed discussed possible routes of delivery and associated risks: [] special requests: [] Plans Covid status: [] Flu vaccine: dec Tdap vaccine: declined Rhogam: declined- Rh negative LARC form signed: yes movement and labor precautions reviewed. Problem list reviewed and updated with the most current plan of care details and appropriate orders placed. Relevant counseling for the gestational age provided. Continue routine care and follow up unless otherwise noted in visit notes/problem list details OB Flowsheet Initial Weight: Not Recorded Date -?-?-?-?-?-?-?-?-?-?-?-?- EGA Weight BP Urine Prot -?-?-?-?-?-?-?-?-?-?-?-?- Glucose FHR FuHt Pres Dilation -?-?-?-?-?-?-?-?-?-?-?-?- Effaced St Visit Note 11/20/23 -?-?-?-?-?-?-?-?-?-?-?-?- 15w 6d 128 lb 6 oz 105/71 Nega tive -?-?-?-?-?-?-?-?-?-?-?-?- Negative 157 -?-?-?-?-?-?-?-?-?-?-?-?- MH-No VB. Nausea improved. Requests [facility] US due to cost. PN labs today 12/19/23 -?-?-?-?-?-?-?-?-?-?-?-?- 20w 0d 134 lb 8 oz 121/73 Nega tive -?-?-?-?-?-?-?-?-?-?-?-?- Negative 159 -?-?-?-?-?-?-?-?-?-?-?-?- JV- no lof, vagi nal bleeding, or cramping. had round ligament pain for 3 hours last night but nothing now. has anatomy scan scheduled for today. declines flu shot 01/15/24 -?-?-?-?-?-?-?-?-?-?-?-?- 23w 6d 137 lb 6 oz 112/70 Nega tive -?-?-?-?-?-?-?-?-?-?-?-?- Negative 155 -?-?-?-?-?-?-?-?-?-?-?-?- Sm- no vb lof so me mild crmaping 02/11/24 -?-?-?-?-?-?-?-?-?-?-?-?- 27w 5d 146 lb 110/69 Trace -?-?-?-?-?-?-?-?-?-?-?-?- Negative 145 27 -?-?--?-?-?-?-?-?-?-?-?-?- SM- no vb lof go od fm nor egular ctx 02/27/24 -?-?-?-?-?-?-?-?-?-?-?-?- 30w 0d 147 lb 2 oz 116/64 Nega tive -?-?-?-?-?-?-?-?-?-?-?-?- Negative 154 30 -?-?-?-?-?-?-?-?-?-?-?-?- MH-No VB, LOF. G ood FM. Larc. Declines tdap 03/12/24 -?-?-?-?-?-?-?-?-?-?-?-?- 32w 0d 150 lb 112/72 -?-?-?-?-?-?-?-?-?-?-?-?- 140 31 -?-?-?-?-?-?-?-?-?-?-?-?- KW- no vb/lof/ct x. good fm. 04/09/24 -?-?-?-?-?-?-?-?-?-?-?-?- 36w 0d 153 lb 4 oz 108/69 Nega tive -?-?-?-?-?-?-?-?-?-?-?-?- Negative 145 35 1 -?-?-?-?-?-?-?-?-?-?-?-?- 40 -2 KW- no vb/ lof/ctx. good fm. GBS today KW- no vb/lof/ctx. good fm. GBS today. 04/16/24 -?-?-?-?-?-?-?-?-?-?-?-?- 37w 0d 158 lb 2 oz 129/79 Nega tive -?-?-?-?-?-?-?-?-?-?-?-?- Negative 140 36 Cephalic -?-?-?-?-?-?-?-?-?-?-?-?- Sm- no vb lof go od fm no reuglar ctx 04/23/24 -?-?-?-?-?-?-?-?-?-?-?-?- 38w 0d 156 lb 8 oz 115/81 Nega tive -?-?-?-?-?-?-?-?-?-?-?-?- Negative 155 37 Cephalic -?-?-?-?-?-?-?-?-?-?-?-?- KW- no vb/lof/ct x. good fm. declines SVE today 04/29/24 -?-?-?-?-?-?-?-?-?-?-?-?- 38w 6d 157 lb 6 oz 125/84 Nega tive -?-?-?-?-?-?-?-?-?-?-?-?- Negative 150 37 Cephalic -?-?-?-?-?-?-?-?-?-?-?-?- Sm- no vb lof go od fm no regular ctx Sm- no vb lof dec fm no regu lar ctx low FH to l and d for nst and growth US ROS Constitutional Constitutional: Reports systems reviewed and no addt'l complaints, except as documented Gastrointestinal Gastrointestinal: Denies bloating, constipation, cramping, diarrhea, nausea or vomiting Genitourinary Genitourinary: Reports other Details: Denies vaginal odor, vaginal bleeding, or vaginal discharge ; Denies difficulty urinating or flank pain Physical Exam HEENT normocephalic Resp normal respiratory effort and normal air movement no CVA tenderness Manual OB Exam: dilated 2 cm, effaced 80% and station -2 Extremity normal to inspection General Extremity: edema bilateral (trace ) NST FHR Rate Baby A Baseline: 140 Variability:: Moderate Accelerations:: 15 x 15 Decelerations:: None NST Reactive:: Yes FHR Category:: Category I Assessment & Plan (1) IUGR (intrauterine growth restriction) affecting care of mother: (2) Uterine size-date discrepancy, third trimester: COMMENT: plan nst and growth US on l and d (3) Breast lump on left side at 2 o'clock position: COMMENT: US 11/20/23: suspicious Cat 4:s/p gen surg consult, repeat US in 6 months. (4) Rh negative state in antepartum period: COMMENT: Pt A-. is O-. declines rhogam (5) Supervision of high-risk : QUALIFIERS: Trimester: third trimester Qualified Code(s): O09.93 - Supervision of high risk , unspecified, third trimester COMMENT: PRR , KHALIDA 05/07/24, boy PC May, Sincere (6) : QUALIFIERS: Weeks of gestation: 38 weeks Qualified Code(s): Z3A.38 - 38 weeks gestation of COMMENT: GBS neg, declines genetic & carrier testing. Nl anatomy PLAN: Plan nst is reactive and nicole is normal plan is to induce labor at 39 weeks, which is tomorrow. Charges/Coding Multi Select Codes Visit Charges Office Visit/Consults: 31232 OV L3 Est 20min Urinary/Genital Urinary/Genital CPT Codes: 56892-35 non-stress test Interp
== END 2024-04-29 13:20 | disposition home or self-care (01) ==
LOC: WPOUT 11:00 → WP 11:01
PROVIDERS: Referring Provider Obstetrics & Gynecology; Visit Provider Obstetrics & Gynecology
DX: O09.93 Supervision of high risk pregnancy, unspecified, third trimester (principal); O36.5930 Maternal care for other known or suspected poor fetal growth, third trimester, not applicable or unspecified; Z3A.38 38 weeks gestation of pregnancy; O26.843 Uterine size-date discrepancy, third trimester; O92.29 Other disorders of breast associated with pregnancy and the puerperium; O26.893 Other specified pregnancy related conditions, third trimester
CPT/HCPCS: 59025; 59050; 76816; 99221; G0378

== ENCOUNTER 2024-04-30 11:27 | Inpatient (IN) | payer OTHER, SELFPAY ==
[2024-04-30] VITALS (63 sets, daily range): BP systolic 100–133; BP diastolic 55–83; PULSE 71–123; RESP 15–17; TEMP 36.2–36.7; O2SAT 97–100; BMI 26.9
[2024-04-30] MEDS: Lactated Ringers 1,000 ML 50 ML IV (12:10)
[2024-04-30 12:47] LABS: Absolute Lymphocyte Count 1.45 X10^3/uL (0.83-4.51); Absolute Neutrophil Count 9.8 X10^3/uL (2.0-7.7); Basophil# 0.04 X10^3/uL; Basophil% 0.3 % (0-1); Eosinophil# 0.07 X10^3/uL; Eosinophils% 0.6 % (0-5); Hematocrit 32.1 % (37-47); Hemoglobin 10.8 g/dL (12.0-15.0); Lymphocyte # 1.45 X10^3/ul (0.83-4.51); Lymphocyte % 11.9 % (19-41); Mean Corp Hgb Conc 33.6 g/dL (32-36); Mean Corpuscular Hgb 27.6 pg (27.0-32.0); Mean Corpuscular Volume 82.1 fL (81-99); Mean Platelet Vol. 8.5 fl (6.2-12.0); Monocyte# 0.66 X10^3/uL; Monocyte% 5.4 % (0-10); NRBC Flagged by Analyzer 0 % (0-5); Neutrophil # 9.81 X10^3/uL (2.7-7.7); Neutrophil % 80.9 % (47-70); Platelet Count 289 K/mm3 (150-450); RBC Distribution Width CV 13.9 % (11.6-14.6); RBC Distribution Width SD 39.8 fl (35.1-43.9); Red Blood Count 3.91 M/mm3 (4.2-5.4); White Blood Count 12.1 K/mm3 (4.4-11.0)
[2024-04-30] MEDS: Oxytocin 15 Units/NS 250ml 15 UNITS/250 ML IV.SOLN 2 UNITS IV (13:08)
[2024-04-30 13:34] LABS: Syphilis Antibodies Nonreactive (Nonreactive)
--- NOTE | 2024-04-30 16:45 | HP.PCM.OB_ITS ---
HPI - General General Date of Admission: 04/30/24 HPI Narrative MADISON HERNANDEZ, is a 33 F who presents for IOL secondary to IUGR no vb lof good fm n oreuglar ctx Maternal Data Information KHALIDA Calculator Estimated Delivery Date Method Current WG Current Estimate 05/07/24 LMP (Certain) 39w 0d Other Estimates 05/07/24 Ultrasound #1 39w 0d PFSH PFSH Medical History (Updated 04/30/24 @ 12:34 by Sukh Oviedo) Breast lump Melanoma Home Medications ?Medication ?Instructions ?Recorded ?Last Taken ?Type multivitamin no.47-iron fum 27 1 cap PO DAILY pregnanc y 10/19/23 Unknown History mg-folate no.1 1 mg-dha 300 mg capsule (PNV-DHA) Allergy/AdvReac Type Severity Reaction Status Date / Time No Known Allergies Allergy Verified 04/30/24 11:36 Family History Mother Family history of recurrent miscarriage Surgical History History of amputation of toe History of wisdom tooth extraction, class IV edentulism Social History adopted: No household members: spouse and children housing: house number of children: 1 current occupational status: employed 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 pets and animals: No history of recent travel: No sexually active: Yes Smoking Status: Never smoker second hand exposure: No alcohol intake: current alcohol intake frequency: holidays/special occasions only details: not while substance use type: does not use well-balanced diet: daily or most days caffeine: Yes Type: carbonated beverages Number of servings: 1 eating out: rarely or never during the past year weight has: remained stable what type of physical activity do you participate in: none shazia/evangelical: Religion seatbelt use: always do you feel safe at home: Yes additional social history: [place] History 2 Elective abortions Hx Para 1 Spontaneous abortions Hx # Term Pregnancies Ectopic pregnancies Hx # Pregnancies Multiple births # of living children 1 Past Pregnancies Del. Date Name GA/Weeks Outcome Route Bth Weight Infant Gen Labor Lgth Anesthesia Del Locatn Provider FOB 01/22/21May live - full term 8lbs 13oz Female e pidural [facility] Dr. Lebron Visit Details Expected Delivery Route/Plan Labor Preferences- CB/BF classes: no labor support person: Sincere labor intervention preferences: [] pain management options preferred: epidural cut cord/dad catch: no : yes PP control planned: discussed discussed possible routes of delivery and associated risks: [] special requests: [] Plans Covid status: [] Flu vaccine: dec Tdap vaccine: declined Rhogam: declined- Rh negative LARC form signed: yes movement and labor precautions reviewed. Problem list reviewed and updated with the most current plan of care details and appropriate orders placed. Relevant counseling for the gestational age provided. Continue routine care and follow up unless otherwise noted in visit notes/problem list details OB Flowsheet Initial Weight: Not Recorded Date -?-?-?-?-?-?-?-?-?-?-?-?- EGA Weight BP Urine Prot -?-?-?-?-?-?-?-?-?-?-?-?- Glucose FHR FuHt Pres Dilation -?-?-?-?-?-?-?-?-?-?-?-?- Effaced St Visit Note 11/20/23 -?-?-?-?-?-?-?-?-?-?-?-?- 15w 6d 128 lb 6 oz 105/71 Nega tive -?-?-?-?-?-?-?-?-?-?-?-?- Negative 157 -?-?-?-?-?-?-?-?-?-?-?-?- MH-No VB. Nausea improved. Requests [facility] due to cost. PN labs today 12/19/23 -?-?-?-?-?-?-?-?-?-?-?-?- 20w 0d 134 lb 8 oz 121/73 Nega tive -?-?-?-?-?-?-?-?-?-?-?-?- Negative 159 -?-?-?-?-?-?-?-?-?-?-?-?- JV- no lof, vagi nal bleeding, or cramping. had round ligament pain for 3 hours last night but nothing now. has anatomy scan scheduled for today. declines flu shot 01/15/24 -?-?-?-?-?-?-?-?-?-?-?-?- 23w 6d 137 lb 6 oz 112/70 Nega tive -?-?-?-?-?-?-?-?-?-?-?-?- Negative 155 -?-?-?-?-?-?-?-?-?-?-?--?- Sm- no vb lof so me mild crmaping 02/11/24 -?-?-?-?-?-?-?-?-?-?-?-?- 27w 5d 146 lb 110/69 Trace -?-?-?-?-?-?-?-?-?-?-?-?- Negative 145 27 -?-?-?-?-?-?-?-?-?-?-?-?- SM- no vb lof go od fm nor egular ctx 02/27/24 -?-?-?-?-?-?-?-?-?-?-?-?- 30w 0d 147 lb 2 oz 116/64 Nega tive -?-?-?-?-?-?-?-?-?-?-?-?- Negative 154 30 -?-?-?-?-?-?-?-?-?-?-?-?- MH-No VB, LOF. G ood FM. Larc. Declines tdap 03/12/24 -?-?-?-?-?-?-?-?-?-?-?-?- 32w 0d 150 lb 112/72 -?-?-?-?-?-?-?-?-?-?-?-?- 140 31 -?-?-?-?-?-?-?-?-?-?-?-?- KW- no vb/lof/ct x. good fm. 04/09/24 -?-?-?-?-?-?-?-?-?-?-?-?- 36w 0d 153 lb 4 oz 108/69 Nega tive -?-?-?-?-?-?-?-?-?-?-?-?- Negative 145 35 1 -?-?-?-?-?-?-?-?-?-?-?-?- 40 -2 KW- no vb/ lof/ctx. good fm. GBS today KW- no vb/lof/ctx. good fm. GBS today. 04/16/24 -?-?-?-?-?-?-?-?-?-?-?-?- 37w 0d 158 lb 2 oz 129/79 Nega tive -?-?-?-?-?-?-?-?-?-?-?-?- Negative 140 36 Cephalic -?-?-?-?-?-?-?-?-?-?-?-?- Sm- no vb lof go od fm no reuglar ctx 04/23/24 -?-?-?-?-?-?-?-?-?-?-?-?- 38w 0d 156 lb 8 oz 115/81 Nega tive -?-?-?-?-?-?-?-?-?-?-?-?- Negative 155 37 Cephalic -?-?-?-?-?-?-?-?-?-?-?-?- KW- no vb/lof/ct x. good fm. declines SVE today 04/29/24 -?-?-?-?-?-?-?-?-?-?-?-?- 38w 6d 157 lb 6 oz 125/84 Nega tive -?-?-?-?-?-?-?-?-?-?-?-?- Negative 150 37 Cephalic -?-?-?-?-?-?-?-?-?--?-?-?- Sm- no vb lof go od fm no regular ctx Sm- no vb lof dec fm no regu lar ctx low FH to l and d for nst and growth US NST FHR Rate Baby A Baseline: 130 Variability:: Moderate Accelerations:: 15 x 15 Decelerations:: None NST Reactive:: Yes FHR Category:: Category I Uterine Activity:: irregular ROS Constitutional Constitutional: Reports systems reviewed and no addt'l complaints, except as documented Eyes Eyes: Denies change in vision ENT HEENT: Reports systems reviewed and no addt'l complaints, except as documented; Denies headache(s) Cardiovascular Cardiovascular: Reports systems reviewed and no addt'l complaints, except as documented; Denies chest pain or dyspnea Respiratory/Chest Respiratory/Chest: Reports systems reviewed and no addt'l complaints, except as documented Gastrointestinal Gastrointestinal: Reports systems reviewed and no addt'l complaints, except as documented; Denies abdominal pain Genitourinary Genitourinary: Reports systems reviewed and no addt'l complaints, except as documented, contractions Details: present (irregular) and movement Details: present; Denies dysuria or genital lesions Musculoskeletal Musculoskeletal: Reports systems reviewed and no addt'l complaints, except as documented Neurologic Neurologic: Reports systems reviewed and no addt'l complaints, except as documented Endocrine Endocrinology: Reports systems reviewed and no addt'l complaints, except as documented Vital Signs Vital Signs Vital Signs: 04/30/24 11:42 04/30/24 11:42 04/30/24 11:43 Temperature Temperature Source Pulse Rate 112 H 123 H Respiratory Rate Blood Pressure 120/77 BP Systolic 120 BP Diastolic 77 Pulse Ox 04/30/24 11:43 04/30/24 12:34 04/30/24 12:34 Temperature Temperature Source Temporal Pulse Rate Respiratory Rate 17 Blood Pressure BP Systolic BP Diastolic Pulse Ox 100 04/30/24 12:34 04/30/24 13:12 04/30/24 13:12 Temperature 98.0 F Temperature Source Pulse Rate 100 Respiratory Rate Blood Pressure 104/66 BP Systolic 104 BP Diastolic 66 Pulse Ox 04/30/24 13:12 04/30/24 13:12 04/30/24 14:25 Temperature Temperature Source Pulse Rate Respiratory Rate 16 Blood Pressure 122/73 H BP Systolic 122 BP Diastolic 73 Pulse Ox 99 04/30/24 14:25 04/30/24 14:27 04/30/24 14:27 Temperature Temperature Source Temporal Pulse Rate 99 Respiratory Rate 16 Blood Pressure BP Systolic BP Diastolic Pulse Ox 04/30/24 14:27 04/30/24 14:27 04/30/24 15:22 Temperature 97.9 F Temperature Source Pulse Rate Respiratory Rate Blood Pressure 114/74 BP Systolic 114 BP Diastolic 74 Pulse Ox 99 04/30/24 15:22 04/30/24 15:22 04/30/24 16:35 Temperature Temperature Source Pulse Rate 96 Respiratory Rate 16 Blood Pressure 108/65 BP Systolic 108 BP Diastolic 65 Pulse Ox 04/30/24 16:35 04/30/24 16:35 04/30/24 16:36 Temperature Temperature Source Temporal Pulse Rate 96 Respiratory Rate Blood Pressure BP Systolic BP Diastolic Pulse Ox 97 04/30/24 16:36 04/30/24 16:36 Temperature 98.1 F Temperature Source Pulse Rate Respiratory Rate 17 Blood Pressure BP Systolic BP Diastolic Pulse Ox Weight Weight: 157 lb Body Mass Index (BMI) 26.9 Physical Exam Const alert, oriented x3, no apparent distress and healthy appearing HEENT normocephalic and moist oral mucous membranes Head and Scalp: atraumatic Neck full ROM, no lymphadenopathy, supple and thyroid normal General: trachea midline Lymph Lymphatic: no lymphadenopathy noted Chest inspection of chest normal Resp normal respiratory effort Cardio regular rate GI soft to palpation and non-tender GI Narrative: gravid Inspection: gravid external exam normal Manual OB Exam: estimated gestational size appropriate, presentation cephalic, dilated, effaced and station Extremity normal to inspection General Extremity: Negative for edema Skin no rashes or lesions noted Neuro no focal motor deficits and deep tendon reflexes 2+ bilaterally Motor Exam: strength 5/5 throughout and clonus absent Psych mental status grossly normal Labs Labs Labs: Blood Type A NEGATIVE Antibody Screen NEGATIVE Hct 32.1 % (37-47) L Hgb 10.8 g/dL (12.0-15.0) L Obstetrics Ultrasound Syphilis Total Ab Nonreactive (Nonreactive) Rubella IgG Antibody Reactive (Nonreactive) Hep Bs Antigen Non-Reactive (Nonreactive) Hepatitis C Antibody Non-Reactive (Nonreactive) Chlamydia DNA (AMRITA) Negative (Negative) N.gonorrhoeae DNA (AMRITA) Negative (Negative) HIV 1&2 Antibody Non-Reactive (Nonreactive) Glucose 1 Hr 50 gm 111 mg/dL (70-140) Rhogam given: No Assessment & Plan (1) IUGR (intrauterine growth restriction) affecting care of mother: (2) Supervision of high-risk : QUALIFIERS: Trimester: third trimester Qualified Code(s): O09.93 - Supervision of high risk , unspecified, third trimester COMMENT: PRR , KHALIDA 05/07/24, boy PC May, Sincere (3) : QUALIFIERS: Weeks of gestation: 38 weeks Qualified Code(s): Z3A.38 - 38 weeks gestation of COMMENT: GBS neg, declines genetic & carrier testing. Nl anatomy PLAN: Plan plan IOL pitocin epidural
[2024-04-30] MEDS: Lactated Ringers 1,000 ML 999 ML IV (17:26)
[2024-04-30] MEDS: fentaNYL-bupivacaine (epidural) 100 ML BAG EPIDURAL (18:20)
[2024-04-30] MEDS: Oxytocin 15 Units/NS 250ml 15 UNITS/250 ML IV.SOLN 83 UNITS IV (20:35)
--- NOTE | 2024-04-30 20:36 | EX.PCM.OBVAG ---
Assessment & Plan (1) IUGR (intrauterine growth restriction) affecting care of mother: (2) Uterine size-date discrepancy, third trimester: COMMENT: plan nst and growth US on l and d (3) Breast lump on left side at 2 o'clock position: COMMENT: US 11/20/23: suspicious Cat 4:s/p gen surg consult, repeat US in 6 months. (4) Rh negative state in antepartum period: COMMENT: Pt A-. is O-. declines rhogam (5) Supervision of high-risk : QUALIFIERS: Trimester: third trimester Qualified Code(s): O09.93 - Supervision of high risk , unspecified, third trimester COMMENT: PRR , KHALIDA 05/07/24, boy PC May, Sincere (6) : QUALIFIERS: Weeks of gestation: 38 weeks Qualified Code(s): Z3A.38 - 38 weeks gestation of COMMENT: GBS neg, declines genetic & carrier testing. Nl anatomy (7) Vaginal delivery: COMMENT: sm 39 iol iugr boy coby Maternal Data Information KHALIDA Calculator Estimated Delivery Date Method Current WG Current Estimate 05/07/24 LMP (Certain) 39w 0d Other Estimates 05/07/24 Ultrasound #1 39w 0d Vaginal Delivery Maternal Presentation Maternal Presentation: see assessment and plan Vaginal Delivery Information Procedure Performed: Spontaneous Vaginal Delivery Surgeon/Practitioner: Deedee Bear Date of Procedure: 04/30/24 Pre-Procedure Diagnosis: see assessment and plan Post-Procedure Diagnosis: same Type of anesthesia: Epidural Estimated Blood Loss: 200 Findings Description of procedure: Patient began pushing and delivered the head in the DANISH presentation. The head was delivered atraumatically . The anterior and posterior shoulders delivered without complication followed by the rest of the infant and the infant was placed on the maternal abdomen. Delayed cord clamping was employed for approximately 60 seconds. Cord was clamped and cut and gentle traction was applied to the cord and the placenta delivered spontaneously immediately following it was noted to be intact with three-vessel cord. The perineum and vagina were inspected and [was noted to have a second -degree laceration that was repaired in the usual fashion with 3-0 vicryl rapide] . EBL was 200. Patient and infant tolerated delivery well. 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
--- NOTE | 2024-04-30 20:38 | DCINST_ITS ---
Discharge Instructions Diet Discharge Diet: No restrictions DC O2, CPAP, BIPAP needs Home O2 Discharge instructions: No Dressing / Incision Discharge Activity: Return to Normal Activity, May Not Drive (while taking narcotic pain medications.) and May Shower May resume sexual activity in: 4-6 weeks Dressing / Incision Call your doctor if your incision/area has: Continuous Slow Oozing, Sudden Increased Bleeding, Increased Pain/ Swelling, Increased Redness and Foul Smelling Discharge Follow Up Care Please Follow Up With: Deedee Bear MD When: Call [phone] to make an appointment with your doctor in 6 weeks. If you had elevated blood pressure or 4th degree laceration, you will need to be seen in 2 weeks. Test Results: Test results from this visit will be discussed in further detail at your follow- up appointment, if applicable. Discharge Plan Admission Admit Date/Time: 04/30/24 11:27 Attending Provider: Deedee Bear Primary Care Provider: Care Physician,No Primary Discharge Orders/Prescriptions Prescriptions: No Action PNV-DHA 27 mg iron-1 mg -300 mg capsule 1 cap PO DAILY Referrals / Follow Up: Care Physician,No Primary [Primary Care Provider] -
--- NOTE | 2024-05-01 00:29 | NURSING ---
ambulated to room 8 and up to bathroom, pericare completed, patient tolerated well
[2024-05-01 02:00] VITALS: BP 101/61; PULSE 94; RESP 15; TEMP 36.1; O2SAT 96
[2024-05-01] MEDS: Naproxen 500 MG Tablet PO ×2 (06:24→14:19)
--- NOTE | 2024-05-01 08:38 | PCM.PN.OB ---
Subjective Subjective Patient doing well without complaints. Tolerating PO. Ambulating and voiding without difficulty. Feeding well. Denies chest pain, shortness of breath, calf pain/swelling, fevers, chills, lightheadedness. Objective Data Objective Data Vital Signs: Vital Signs Temp Pulse Resp BP Pulse Ox O2 Del Method 97.0 F L 94 15 101/61 96 Room Air 05/01/24 02:00 05/01/24 02:00 05/01/24 02:00 05/01/24 02:00 05/01/24 02:00 05/01/24 02:00 Oxygen Delivery Method Room Air Weight: 157 lb Body Mass Index (BMI) 26.9 Intake & Output: Intake and Output for Last 24 Hours 04/29/24 04/30/24 05/01/24 23:59 23:59 23:59 Intake Total 2627.50 / 2627.50 Output Total 700 / 700 700 / 700 Balance 1927.50 / 1927.50 -700 / -700 Lab / Micro Data 04/30/24 12:10 Labs: Laboratory Results - last 24 hr 04/30/24 12:10: WBC 12.1 H, RBC 3.91 L, Hgb 10.8 L, Hct 32.1 L, MCV 82.1, MCH 27.6, MCHC 33.6, RDW Std Deviation 39.8, RDW Coeff of [place]inda 13.9, Plt Count 289, MPV 8.5, Immature Gran % (Auto) 0.900, Neut % (Auto) 80.9 H, Lymph % (Auto) 11.9 L, [place] % (Auto) 5.4, Eos % (Auto) 0.6, Baso % (Auto) 0.3, Absolute Neuts (auto) 9.8 H, Absolute Lymphs (auto) 1.45, Nucleated RBC % 0, Syphilis Total Ab Nonreactive, Blood Type A NEGATIVE, Antibody Screen NEGATIVE ROS Constitutional Constitutional: Denies chills, fatigue, fever(s), poor appetite or weakness Eyes Eyes: Denies blurry vision, change in vision, seeing flashes or spots in vision ENT HEENT: Denies dizziness, headache(s), loss taste/smell or sore throat Cardiovascular Cardiovascular: Denies chest pain, dizziness, dyspnea, irregular heart rhythm, palpitations or rapid heart rate Respiratory/Chest Respiratory/Chest: Denies chest tightness, cough, dyspnea or breast pain Gastrointestinal Gastrointestinal: Denies abdominal pain, constipation or vomiting Genitourinary Genitourinary: Denies dysuria or flank pain Musculoskeletal Musculoskeletal: Denies difficulty walking, joint pain, limited range of motion or numbness Neurologic Neurologic: Denies abnormal movements, abnormal speech, dizziness, numbness, seizure-like activity or syncope Psychiatric Psychiatric: Denies anxiety, behavioral changes, change in appetite, confusion, depression or suicidal thoughts Physical Exam Const alert, oriented x3 and no apparent distress General Appearance: cooperative and comfortable Resp normal respiratory effort Cardio regular rate GI normal to inspection, nondistended, normoactive bowel sounds GI Narrative: uterus is firm below umbilicus Palpation: soft Back/Spine no CVA tenderness and thoraco-lumbar ROM normal Extremity normal to inspection, no clubbing, cyanosis or edema, no calf tenderness and no pedal edema Psych mental status grossly normal, thought process normal, cooperative, affect normal, speech normal, activity/motor behavior normal, denies homicidal ideation and denies suicidal ideation Assessment & Plan (1) Vaginal delivery: COMMENT: sm 39 iol iugr boy coby PLAN: Plan s/p PPD # 1 1. routine post delivery care 2. breast feeding- support given 3. rh positive 4. rubella immune 5. wants to go home today ok to dc at 24 hrs
[2024-05-01] MEDS: Acetaminophen 500 MG Tablet 1000 MG PO ×2 (09:09→16:33)
[2024-05-01 10:00] VITALS: BP 110/79; PULSE 80; RESP 16; TEMP 36.6; O2SAT 95
[2024-05-01 13:00] VITALS: BP 114/75; PULSE 87; RESP 16; TEMP 36.7; O2SAT 100
[2024-05-01 16:48] VITALS: BP 118/77; PULSE 100; RESP 16; TEMP 36.4; O2SAT 97
[2024-05-01] MEDS: oxyCODONE 5 MG Tablet PO (20:00)
[2024-05-01 21:37] VITALS: BP 117/83; PULSE 83; RESP 15; TEMP 36.7; O2SAT 98
== END 2024-05-01 23:44 | disposition home or self-care (01) | DRG 807 ==
PROVIDERS: Admitting Provider Obstetrics & Gynecology; Referring Provider Obstetrics & Gynecology; Visit Provider Obstetrics & Gynecology
DX: O36.5930 Maternal care for other known or suspected poor fetal growth, third trimester, not applicable or unspecified (principal); Z37.0 Single live birth; O26.843 Uterine size-date discrepancy, third trimester; O26.893 Other specified pregnancy related conditions, third trimester; Z67.11 Type A blood, Rh negative; O92.29 Other disorders of breast associated with pregnancy and the puerperium; O70.1 Second degree perineal laceration during delivery; Z3A.39 39 weeks gestation of pregnancy
CPT/HCPCS: 59025; 59050; 85025; 86780; 86850; 86900; 86901; 99221; G0378

== ENCOUNTER → 2024-06-11 | Outpatient (CLI) | payer OTHER, SELFPAY ==
--- NOTE | 2024-06-11 12:59 | US_ITS ---
PROCEDURE: BREAST LIMITED UNILATERAL 06/11/2024 REASON FOR EXAM: LEFT BREAST MASSES TECHNIQUE: Targeted left breast ultrasound. COMPARISON: Comparison is made with prior examination dated November 20, 2023. FINDINGS: Left breast ultrasound was targeted to the upper-outer quadrant.. Once again, there are 3 hypoechoic solid nodules in the upper-outer quadrant of the left breast at the 2 o'clock position of the breast at 3 cm from the nipple. The largest measures 2.1 cm x 1.4 cm x 1 cm. 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 Biopsy recommended if not already performed. US/Breast Limited Unilateral IMPRESSION: Impression: Stable examination. Birads: BI-RADS 4: SUSPICIOUS ABNORMALITY. Reading Location: [place] [id number]
== END | disposition home or self-care (01) ==
PROVIDERS: Referring Provider Surgery; Visit Provider Surgery
DX: R92.8 Other abnormal and inconclusive findings on diagnostic imaging of breast (principal); N63.21 Unspecified lump in the left breast, upper outer quadrant
CPT/HCPCS: 76642